=== PATIENT | male | born 1945 | race Caucasian/White ===

== ENCOUNTER → 2017-08-30 | Outpatient (CLI) | payer MEDICARE, BC ==
[~2017-08-30] MED LIST: ASPI81CH PO; Cardizem CD 24240 MG PO; DILT300 PO; ENOX80I SC; EZET10-20 PO; LEVSOD100 PO; LEVSOD137 PO; LISHYD1012 PO; METO50ER PO; Mobic15 MG PO; NIFE30ER PO; NITR.4SL SL; PRED10 PO; TRIA80TC EPI; WARF5 PO; Zolpidem Tartrat5 MG PO
== END | disposition home or self-care (01) ==
LOC: PLD 12:37 → LAB SHORT 12:37
DX: L57.0 Actinic keratosis (principal); L90.5 Scar conditions and fibrosis of skin
CPT/HCPCS: 88305

== ENCOUNTER 2019-04-11 13:07 | Day surgery (SDC) | payer MEDICARE, BC ==
[~2019-04-11] VITALS: Ht 170.2 cm; Wt 79.2 kg
[~2019-04-11 13:07] MED LIST changes: -EZET10-20 PO; -LISHYD1012 PO; +VYTORIN PO; +ZESTORETIC 20-251 EA PO
[2019-04-11] MEDS ORDERED: ELIQUIS2.5 MG PO (13:40)
[2019-04-11] MEDS ORDERED: CLOBET30L (13:44)
[2019-04-11] MEDS ORDERED: Cartia Xt120 MG (13:44)
[2019-04-13 15:02] LABS: Performing Lab SYMBIODX; Test Name TISSUE BLOCK
[2019-04-18] MEDS ORDERED: FLUT1DIS5 (12:12)
[2019-04-18] MEDS ORDERED: METO25 PO (12:13)
[2019-04-18] MEDS ORDERED: HYDR1TAB94 (12:13)
[2019-04-18] MEDS ORDERED: DILTIAZEM 24HR120 MG PO (12:14)
[2019-04-18] MEDS ORDERED: OXYC5 PO (12:14)
[2019-04-26] MEDS ORDERED: Levaquin750 MG PO (13:34)
== END 2019-04-11 14:52 | disposition home or self-care (01) ==
LOC: ORSCSDS 13:07
PROVIDERS: Internal Medicine Gastroenterology; Internal Medicine Hematology & Oncology
PROC: 0DB78ZX Excision of Stomach, Pylorus, Via Natural or Artificial Opening Endoscopic, Diagnostic (ICD-10-PCS; principal; 2019-04-11 14:30)
DX: R93.3 Abnormal findings on diagnostic imaging of other parts of digestive tract (principal); C83.39 Diffuse large B-cell lymphoma, extranodal and solid organ sites; I48.91 Unspecified atrial fibrillation; Z79.01 Long term (current) use of anticoagulants; J45.909 Unspecified asthma, uncomplicated; G47.33 Obstructive sleep apnea (adult) (pediatric); E03.9 Hypothyroidism, unspecified; Z79.899 Other long term (current) drug therapy
CPT/HCPCS: 74019; 88305; 88341; 88342; 88360; J2704; J7120

== ENCOUNTER 2019-04-19 10:51 | Day surgery (SDC) | payer MEDICARE, BC ==
[~2019-04-19] VITALS: Ht 170.2 cm; Wt 80.1 kg
[~2019-04-19 10:51] MED LIST changes: +CLOBET30L; +Cartia Xt120 MG; +DILTIAZEM 24HR120 MG PO; +ELIQUIS2.5 MG PO; +FLUT1DIS5; +HYDR1TAB94; +METO25 PO; +OXYC5 PO
--- NOTE | 2019-04-19 11:08 | NUR ---
History, Chart, Medications and Allergies reviewed before start of procedure. Patient confirms NPO status and agrees with scheduled surgery. Patient States Post-Procedure ride home has been arranged.
--- NOTE | 2019-04-19 15:24 | NUR ---
INTO STEP VIA [facility]. PT A&OX3. DENIES PAIN AT THIS TIME. OCCLUSIVE DRESSING TO ACCESSED MEDIPORT-RIGHT CHEST WALL. PT TO HAVE TREATMENT AT [facility] TODAY.
--- NOTE | 2019-04-19 15:42 | NUR ---
DISCHARGE INSTRUCTIONS GIVEN TO PT AND FAMILY BY CLAUDIO LOCKE. PT AND FAMILY VERBALIZE UNDERSTANDING. PT DISCHARGED-OUT VIA WHEELCHAIR WITH BELONGINGS AND DISCHARGE INSTRUCTIONS ON HAND. PT TO GO DIRECTLY TO [facility] FOR T[facility]ATMENT.
[2019-04-26] MEDS ORDERED: Levaquin750 MG PO (13:34)
== END 2019-04-19 15:42 | disposition home or self-care (01) ==
LOC: ORSCMMR 10:51 → ORD 12:15 → ORSCMMR 15:42
PROVIDERS: Surgery
PROC: 05HM33Z Insertion of Infusion Device into Right Internal Jugular Vein, Percutaneous Approach (ICD-10-PCS; principal; 2019-04-19 12:15)
PROC: B5131ZA Fluoroscopy of Right Jugular Veins using Low Osmolar Contrast, Guidance (ICD-10-PCS; principal; 2019-04-19 12:15)
DX: C25.9 Malignant neoplasm of pancreas, unspecified (principal); I48.91 Unspecified atrial fibrillation; I25.10 Atherosclerotic heart disease of native coronary artery without angina pectoris; J45.909 Unspecified asthma, uncomplicated; G47.33 Obstructive sleep apnea (adult) (pediatric); Z87.891 Personal history of nicotine dependence; E03.9 Hypothyroidism, unspecified; Z86.73 Personal history of transient ischemic attack (TIA), and cerebral infarction without residual deficits; Z79.899 Other long term (current) drug therapy; Z79.01 Long term (current) use of anticoagulants
CPT/HCPCS: 77001; C1788; J0690; J1100; J1642; J2250; J2405; J2704; J3010; J7120

== ENCOUNTER 2019-04-28 10:39 | Emergency (ER) | payer OTHER, MEDICARE, BC ==
[~2019-04-28] VITALS: Ht 170.2 cm; Wt 79.4 kg
[~2019-04-28 10:39] MED LIST changes: +Levaquin750 MG PO
[2019-04-28 12:02] LABS: Mean Corpuscular HGB 29.9 pg (26.0-34.0); Mean Corpuscular HGB Conc 32.4 g/dL (31.5-36.5); Mean Corpuscular Volume 92 fL (80-100); Mean Platelet Volume 11.7 fL (9.1-12.4); Platelet Count 59 K/mm3 (150-400); RDW Coefficient Variation 12.6 % (11.7-14.2); RDW Standard Deviation 42.8 fL (35.1-46.3); Red Blood Cell Count 4.02 M/mm3 (4.30-5.90); White Blood Cell Count 1.01 K/mm3 (4.00-11.30)
[2019-04-28 12:09] LABS: Alanine Aminotransfer (ALT/SGP 11 U/L (12-78); Albumin, Blood 2.4 g/dL (3.4-5.0); Albumin/Globulin Ratio 0.8 (0.8-1.8); Alk Phos 95 U/L (50-136); Anion Gap 9 mmol/L (6-16); Aspartate Aminotrans (AST/SGOT 15 U/L (12-37); Bilirubin, Total 0.4 mg/dL (0.1-1.0); Blood Urea Nitrogen 13 mg/dL (8-24); Bun/Creatinine Ratio 12.4 (12.0-20.0); CO2, Blood 22 mmol/L (21-32); Calcium, Blood 8.6 mg/dL (8.5-10.1); Chloride, Blood 104 mmol/L (98-108); Creatinine, Blood 1.05 mg/dL (0.60-1.20); Globulin, Blood 3.2 g/dL (2.2-4.0); Glomerular Filtration Rate >60 (60-); Glucose, Blood 146 mg/dL (70-99); Magnesium, Blood 2.1 mg/dL (1.6-2.4); Potassium, Blood 4.2 mmol/L (3.5-5.5); Sodium, Blood 135 mmol/L (136-145); Total Protein, Blood 5.6 g/dL (6.4-8.2); Troponin I <0.015 ng/mL (0.000-0.040)
[2019-04-28 13:05] LABS: BAND PERCENT MAN 10 % (0-8); BASOPHILS ABSOLUTE MAN 0.02 K/mm3 (0.00-0.23); BASOPHILS PERCENT MAN 2 % (0-2); EOSINOPHILS ABSOLUTE MAN 0.02 K/mm3 (0.00-0.68); EOSINOPHILS PERCENT MAN 2 % (0-6); LYMPHOCYTES PERCENT MAN 60 % (21-46); METAMYELOCYTE ABSOLUTE MAN 0.02 K/mm3 (0.00-0.00); METAMYELOCYTE PERCENT MAN 2 % (0-0); MONOCYTES ABSOLUTE MAN 0.04 K/mm3 (0.16-1.47); MONOCYTES PERCENT MAN 4 % (4-13); SEG NEUTROPHILS PERCENT MAN 20 % (41-73); TOTAL CELLS COUNTED 50
[2019-04-28] MEDS ORDERED: EZETIMIBE-SIMV1 EAC1 PO (13:34)
[2019-04-28] MEDS ORDERED: CLOBETTC TOP (13:36)
[2019-04-28] MEDS ORDERED: DOCU100 PO (13:36)
== END 2019-04-28 14:30 | disposition home or self-care (01) ==
LOC: ER 10:39
PROVIDERS: Emergency Medicine
DX: R55 Syncope and collapse (principal); S09.90XA Unspecified injury of head, initial encounter; W18.30XA Fall on same level, unspecified, initial encounter; Z79.899 Other long term (current) drug therapy; I10 Essential (primary) hypertension; E03.9 Hypothyroidism, unspecified; E78.00 Pure hypercholesterolemia, unspecified; Z87.891 Personal history of nicotine dependence
CPT/HCPCS: 36415; 70450; 74022; 80053; 83735; 84484; 85025; 93005; 93010; 96361; 96374; 96375; 96376; 99285-25; J1170; J2405; J7030

== ENCOUNTER 2019-05-17 15:08 | Emergency (ER) | payer MEDICARE, BC ==
[~2019-05-17] VITALS: Ht 170.2 cm; Wt 77.1 kg
[~2019-05-17 15:08] MED LIST changes: +CLOBETTC TOP; +DOCU100 PO; +EZETIMIBE-SIMV1 EAC1 PO
[2019-05-17 15:55] LABS: Hematocrit 34.5 % (37.0-53.0); Hemoglobin 11.7 g/dL (13.5-17.5); Mean Corpuscular HGB 30.9 pg (26.0-34.0); Mean Corpuscular HGB Conc 33.9 g/dL (31.5-36.5); Mean Corpuscular Volume 91 fL (80-100); Platelet Count 106 K/mm3 (150-400); RDW Coefficient Variation 14.8 % (11.7-14.2); RDW Standard Deviation 48.8 fL (35.1-46.3); Red Blood Cell Count 3.79 M/mm3 (4.30-5.90); White Blood Cell Count 1.64 K/mm3 (4.00-11.30)
[2019-05-17 16:12] LABS: Alanine Aminotransfer (ALT/SGP 17 U/L (12-78); Alk Phos 94 U/L (50-136); Anion Gap 8 mmol/L (6-16); Aspartate Aminotrans (AST/SGOT 9 U/L (12-37); Bilirubin, Total 0.4 mg/dL (0.1-1.0); Blood Urea Nitrogen 18 mg/dL (8-24); Bun/Creatinine Ratio 24.4 (12.0-20.0); CO2, Blood 24 mmol/L (21-32); Calcium, Blood 9.3 mg/dL (8.5-10.1); Chloride, Blood 105 mmol/L (98-108); Creatinine, Blood 0.74 mg/dL (0.60-1.20); Globulin, Blood 2.9 g/dL (2.2-4.0); Glomerular Filtration Rate >60 (60-); Glucose, Blood 168 mg/dL (70-99); Potassium, Blood 3.8 mmol/L (3.5-5.5); Sodium, Blood 137 mmol/L (136-145); Total Protein, Blood 5.9 g/dL (6.4-8.2); Troponin I <0.015 ng/mL (0.000-0.040)
[2019-05-17 16:28] LABS: BAND PERCENT MAN 6 % (0-8); BASOPHILS ABSOLUTE MAN 0.03 K/mm3 (0.00-0.23); BASOPHILS PERCENT MAN 2 % (0-2); EOSINOPHILS ABSOLUTE MAN 0.03 K/mm3 (0.00-0.68); EOSINOPHILS PERCENT MAN 2 % (0-6); LYMPHOCYTES % ATYPICAL MANUAL 2 % (0-0); LYMPHOCYTES ABSOLUTE MAN 1.11 K/mm3 (0.84-5.20); LYMPHOCYTES PERCENT MAN 66 % (21-46); MONOCYTES ABSOLUTE MAN 0.16 K/mm3 (0.16-1.47); MONOCYTES PERCENT MAN 10 % (4-13); NEUTROPHILS ABSOLUTE MAN 0.29 K/mm3 (1.96-9.15); SEG NEUTROPHILS PERCENT MAN 12 % (41-73); TOTAL CELLS COUNTED 50
== END 2019-05-17 17:58 | disposition home or self-care (01) ==
LOC: ER 15:08
PROVIDERS: Physician Assistant
DX: I48.91 Unspecified atrial fibrillation (principal); E86.0 Dehydration; Z79.899 Other long term (current) drug therapy; I10 Essential (primary) hypertension; Z87.891 Personal history of nicotine dependence
CPT/HCPCS: 36415; 71045; 80053; 83735; 83880; 84484; 85025; 93005; 93010; 96361; 96374; 99285-25; J1642; J7030

== ENCOUNTER 2019-06-01 22:13 | Emergency (ER) | payer MEDICARE, BC ==
[~2019-06-01] VITALS: Ht 170.2 cm; Wt 77.1 kg
[2019-06-01 22:42] LABS: Hematocrit 32.9 % (37.0-53.0); Hemoglobin 11.3 g/dL (13.5-17.5); Mean Corpuscular HGB 32.7 pg (26.0-34.0); Mean Corpuscular HGB Conc 34.3 g/dL (31.5-36.5); Mean Platelet Volume 9.5 fL (9.1-12.4); Platelet Count 221 K/mm3 (150-400); RDW Coefficient Variation 19.2 % (11.7-14.2); RDW Standard Deviation 65.2 fL (35.1-46.3); Red Blood Cell Count 3.46 M/mm3 (4.30-5.90)
[2019-06-01 22:44] LABS: Mean Corpuscular Volume 95 fL (80-100)
[2019-06-01 22:45] LABS: White Blood Cell Count 78.17 K/mm3 (4.00-11.30)
[2019-06-01 22:53] LABS: Alanine Aminotransfer (ALT/SGP 17 U/L (12-78); Albumin, Blood 3.2 g/dL (3.4-5.0); Albumin/Globulin Ratio 1.1 (0.8-1.8); Alk Phos 116 U/L (50-136); Anion Gap 10 mmol/L (6-16); Aspartate Aminotrans (AST/SGOT 18 U/L (12-37); Bilirubin, Total 0.4 mg/dL (0.1-1.0); Blood Urea Nitrogen 19 mg/dL (8-24); Bun/Creatinine Ratio 24.1 (12.0-20.0); CO2, Blood 23 mmol/L (21-32); Calcium, Blood 8.9 mg/dL (8.5-10.1); Chloride, Blood 106 mmol/L (98-108); Creatinine, Blood 0.79 mg/dL (0.60-1.20); Globulin, Blood 2.8 g/dL (2.2-4.0); Glomerular Filtration Rate >60 (60-); Glucose, Blood 188 mg/dL (70-99); Potassium, Blood 3.9 mmol/L (3.5-5.5); Sodium, Blood 139 mmol/L (136-145); Troponin I 0.027 ng/mL (0.000-0.040)
[2019-06-01 23:06] LABS: BAND PERCENT MAN 16 % (0-8); BASOPHILS PERCENT MAN 0 % (0-2); EOSINOPHILS PERCENT MAN 0 % (0-6); LYMPHOCYTES ABSOLUTE MAN 1.56 K/mm3 (0.84-5.20); LYMPHOCYTES PERCENT MAN 2 % (21-46); METAMYELOCYTE ABSOLUTE MAN 0.78 K/mm3 (0.00-0.00); METAMYELOCYTE PERCENT MAN 1 % (0-0); MONOCYTES ABSOLUTE MAN 3.12 K/mm3 (0.16-1.47); MONOCYTES PERCENT MAN 4 % (4-13); MYELOCYTE ABSOLUTE MAN 0.78 K/mm3 (0.00-0.00); MYELOCYTE PERCENT MAN 1 % (0-0); NEUTROPHILS ABSOLUTE MAN 71.91 K/mm3 (1.96-9.15); SEG NEUTROPHILS PERCENT MAN 76 % (41-73); TOTAL CELLS COUNTED 100
== END 2019-06-02 02:01 | disposition home or self-care (01) ==
LOC: ER 22:13
PROVIDERS: Emergency Medicine
DX: I48.91 Unspecified atrial fibrillation (principal); C85.90 Non-Hodgkin lymphoma, unspecified, unspecified site; D72.829 Elevated white blood cell count, unspecified; Z87.891 Personal history of nicotine dependence; Z79.899 Other long term (current) drug therapy; Z79.01 Long term (current) use of anticoagulants
CPT/HCPCS: 36415; 71045; 80053; 83880; 84484; 85025; 93005; 93010; 96365; 96366; 96368; 96375; 99285-25; J1170; J2405; J3475; J7030

== ENCOUNTER 2019-06-22 20:48 | Emergency (ER) | payer OTHER, MEDICARE, BC ==
[~2019-06-22] VITALS: Ht 170.2 cm; Wt 78.9 kg
[2019-06-22] MEDS ORDERED: METOPROLOL SUCC25 MG PO (21:03)
[2019-06-22] MEDS ORDERED: PRINIVIL10 MG PO (21:04)
[2019-06-22] MEDS ORDERED: Hydrochloroth12.5 MG PO (21:04)
[2019-06-22] MEDS ORDERED: FLUT1DIS5 INH (21:05)
[2019-06-22] MEDS ORDERED: PRED20 PO (21:06)
[2019-06-22] MEDS ORDERED: MIRALAX17 GM PO (21:06)
[2019-06-22 21:41] LABS: Mean Corpuscular Volume 98 fL (80-100)
[2019-06-22 21:50] LABS: Hematocrit 34.5 % (37.0-53.0); Hemoglobin 11.8 g/dL (13.5-17.5); Mean Corpuscular HGB 33.6 pg (26.0-34.0); Mean Corpuscular HGB Conc 34.2 g/dL (31.5-36.5); Mean Platelet Volume 9.6 fL (9.1-12.4); Platelet Count 191 K/mm3 (150-400); RDW Coefficient Variation 21.2 % (11.7-14.2); RDW Standard Deviation 74.5 fL (35.1-46.3); Red Blood Cell Count 3.51 M/mm3 (4.30-5.90)
[2019-06-22 21:55] LABS: White Blood Cell Count 87.45 K/mm3 (4.00-11.30)
[2019-06-22 22:04] LABS: Alanine Aminotransfer (ALT/SGP 21 U/L (12-78); Albumin, Blood 3.3 g/dL (3.4-5.0); Albumin/Globulin Ratio 1.1 (0.8-1.8); Alk Phos 112 U/L (50-136); Anion Gap 11 mmol/L (6-16); Aspartate Aminotrans (AST/SGOT 14 U/L (12-37); Bilirubin, Total 0.4 mg/dL (0.1-1.0); Blood Urea Nitrogen 21 mg/dL (8-24); Bun/Creatinine Ratio 23.7 (12.0-20.0); CO2, Blood 22 mmol/L (21-32); Calcium, Blood 8.9 mg/dL (8.5-10.1); Chloride, Blood 105 mmol/L (98-108); Creatinine, Blood 0.89 mg/dL (0.60-1.20); Globulin, Blood 2.9 g/dL (2.2-4.0); Glomerular Filtration Rate >60 (60-); Glucose, Blood 241 mg/dL (70-99); Potassium, Blood 3.7 mmol/L (3.5-5.5); Sodium, Blood 138 mmol/L (136-145); Total Protein, Blood 6.2 g/dL (6.4-8.2); Troponin I 0.029 ng/mL (0.000-0.040)
[2019-06-22 22:12] LABS: BAND PERCENT MAN 10 % (0-8); BASOPHILS PERCENT MAN 0 % (0-2); EOSINOPHILS PERCENT MAN 0 % (0-6); LYMPHOCYTES ABSOLUTE MAN 1.74 K/mm3 (0.84-5.20); LYMPHOCYTES PERCENT MAN 2 % (21-46); MONOCYTES PERCENT MAN 0 % (4-13); SEG NEUTROPHILS PERCENT MAN 88 % (41-73); TOTAL CELLS COUNTED 100
== END 2019-06-22 23:00 | disposition home or self-care (01) ==
LOC: ER 20:48
PROVIDERS: Emergency Medicine
DX: I48.91 Unspecified atrial fibrillation (principal); T45.1X5A Adverse effect of antineoplastic and immunosuppressive drugs, initial encounter; D72.829 Elevated white blood cell count, unspecified; C85.90 Non-Hodgkin lymphoma, unspecified, unspecified site; I10 Essential (primary) hypertension; E03.9 Hypothyroidism, unspecified; E78.00 Pure hypercholesterolemia, unspecified; Z87.891 Personal history of nicotine dependence; Z79.899 Other long term (current) drug therapy; Z79.01 Long term (current) use of anticoagulants
CPT/HCPCS: 36415; 71045; 80053; 84484; 85025; 93005; 93010; 96361; 96374; 99285-25; J7030

== ENCOUNTER 2021-09-05 10:49 | Day surgery (SDC) | payer MEDICARE, BC ==
[~2021-09-05] VITALS: Ht 170.2 cm; Wt 85.6 kg
[~2021-09-05 10:49] MED LIST changes: +FLUT1DIS5 INH; +Hydrochloroth12.5 MG PO; +METOPROLOL SUCC25 MG PO; +MIRALAX17 GM PO; +PRED20 PO; +PRINIVIL10 MG PO
[2021-09-05] MEDS ORDERED: IRBE150 (11:09)
[2021-09-05] MEDS ORDERED: ZINC15 (11:10)
== END 2021-09-05 15:05 | disposition home or self-care (01) ==
LOC: ORSCSDS 10:49
PROVIDERS: Internal Medicine Gastroenterology
PROC: 0DB78ZX Excision of Stomach, Pylorus, Via Natural or Artificial Opening Endoscopic, Diagnostic (ICD-10-PCS; principal; 2021-09-05 12:15)
PROC: 0DJD8ZZ Inspection of Lower Intestinal Tract, Via Natural or Artificial Opening Endoscopic (ICD-10-PCS; principal; 2021-09-05 12:15)
DX: Z85.028 Personal history of other malignant neoplasm of stomach (principal); K31.7 Polyp of stomach and duodenum; Z12.11 Encounter for screening for malignant neoplasm of colon; Z86.010 Personal history of colon polyps; I10 Essential (primary) hypertension; I48.0 Paroxysmal atrial fibrillation; Z79.01 Long term (current) use of anticoagulants; Z79.82 Long term (current) use of aspirin; Z79.899 Other long term (current) drug therapy; Z87.891 Personal history of nicotine dependence
CPT/HCPCS: 43239; G0105; 88305; 88342; J2250; J2704; J7120

== ENCOUNTER 2025-01-29 12:22 | Emergency (ER) | payer MEDICARE, BC ==
[~2025-01-29] VITALS: Ht 170.2 cm; Wt 79.4 kg
[~2025-01-29 12:22] MED LIST changes: +IRBE150; +ZINC15
[2025-01-29 13:20] LABS: Hematocrit 35.5 % (37.0-53.0); Hemoglobin 11.8 g/dL (13.5-17.5); Mean Corpuscular HGB 31.9 pg (26.0-34.0); Mean Corpuscular HGB Conc 33.2 g/dL (31.5-36.5); Mean Corpuscular Volume 96 fL (80-100); Mean Platelet Volume 9.4 fL (9.1-12.4); Platelet Count 136 K/mm3 (150-400); RDW Coefficient Variation 16.2 % (11.7-14.2); RDW Standard Deviation 56.8 fL (35.1-46.3); White Blood Cell Count 4.82 K/mm3 (4.00-11.30)
[2025-01-29 13:36] LABS: Albumin, Blood 3.5 g/dL (3.4-5.0); Albumin/Globulin Ratio 1.1 (0.8-1.8); Bilirubin, Total 1.1 mg/dL (0.1-1.0); Bun/Creatinine Ratio 17.6 (12.0-20.0); Creatinine, Blood 1.02 mg/dL (0.60-1.20); Globulin, Blood 3.3 g/dL (2.2-4.0); Potassium, Blood 4.4 mmol/L (3.5-5.5); Total Protein, Blood 6.8 g/dL (6.4-8.2)
[2025-01-29 14:06] LABS: BASOPHILS PERCENT MAN 0 % (0-2); EOSINOPHILS ABSOLUTE MAN 0.09 K/mm3 (0.00-0.68); EOSINOPHILS PERCENT MAN 2 % (0-6); LYMPHOCYTES PERCENT MAN 54 % (21-46); MONOCYTES ABSOLUTE MAN 0.28 K/mm3 (0.16-1.47); MONOCYTES PERCENT MAN 6 % (4-13); NEUTROPHILS ABSOLUTE MAN 1.83 K/mm3 (1.96-9.15); SEG NEUTROPHILS PERCENT MAN 38 % (41-73); TOTAL CELLS COUNTED 100
[2025-01-29 15:15] VITALS: BP 169/58
== END 2025-01-29 15:54 | disposition home or self-care (01) ==
LOC: ER 12:22
PROVIDERS: Student in an Organized Health Care Education/Training Program
DX: R07.89 Other chest pain (principal)
CPT/HCPCS: 71046; 76705; 80053; 83690; 84484; 85025; 85379; 93005; 93010; 99285-25

== ENCOUNTER → 2025-07-04 | Outpatient (CLI) | payer MEDICARE, BC ==
[2025-07-04 14:18] LABS: Stool Occult Blood Guaiac 1 Neg (Neg)
== END ==
LOC: LAB 09:30 → LAB SHORT 09:30 → LAB FUT 07-03 13:40
PROVIDERS: Registered Nurse Oncology
DX: D61.818 Other pancytopenia (principal); D70.1 Agranulocytosis secondary to cancer chemotherapy; R79.89 Other specified abnormal findings of blood chemistry; G89.3 Neoplasm related pain (acute) (chronic); C25.2 Malignant neoplasm of tail of pancreas; C85.90 Non-Hodgkin lymphoma, unspecified, unspecified site
CPT/HCPCS: 82272